=== PATIENT | female | born 1935 | race Caucasian/White ===

== ENCOUNTER 2019-06-04 05:22 | Emergency (ER) | payer MEDICARE ==
[~2019-06-04] VITALS: Ht 152.4 cm; Wt 50.8 kg
[~2019-06-04 05:22] MED LIST: ALBU.083IS IH; CLOP75 PO; FURO40 PO; OMEP10ER PO; ONDA4ODT MM; POTCHL20ER PO; PROACE100 PO
[2019-06-04] MEDS ORDERED: Carvedilol12.5 MG (05:45)
[2019-06-04] MEDS ORDERED: SPIR25 (05:46)
[2019-06-04] MEDS ORDERED: Prinivil10 MG (05:46)
[2019-06-04] MEDS ORDERED: LINZESS145 MCG (05:47)
[2019-06-04] MEDS ORDERED: ATOR40TA (05:47)
[2019-06-04 07:18] LABS: BASOPHILS ABSOLUTE AUTO 0.06 K/mm3 (0.00-0.23); BASOPHILS PERCENT AUTO 0 % (0-2); EOSINOPHILS ABSOLUTE AUTO 0.02 K/mm3 (0.00-0.68); EOSINOPHILS PERCENT AUTO 0 % (0-6); Hemoglobin 11.8 g/dL (11.5-16.0); IMMATURE GRAN ABSOLUTE AUTO 0.05 K/mm3 (0.00-0.10); IMMATURE GRAN PERCENT AUTO 0 % (0-1); LYMPHOCYTES PERCENT AUTO 8 % (21-46); MONOCYTES ABSOLUTE AUTO 1.05 K/mm3 (0.16-1.47); MONOCYTES PERCENT AUTO 7 % (4-13); Mean Corpuscular HGB 32.9 pg (26.0-34.0); Mean Corpuscular HGB Conc 34.7 g/dL (31.5-36.5); Mean Corpuscular Volume 95 fL (80-100); Mean Platelet Volume 10.8 fL (9.1-12.4); NEUTROPHILS ABSOLUTE AUTO 12.21 K/mm3 (1.96-9.15); NEUTROPHILS PERCENT AUTO 84 % (41-73); Platelet Count 251 K/mm3 (150-400); RDW Coefficient Variation 11.9 % (11.7-14.2); RDW Standard Deviation 41.1 fL (35.1-46.3); Red Blood Cell Count 3.59 M/mm3 (3.80-5.20); White Blood Cell Count 14.49 K/mm3 (4.00-11.30)
[2019-06-04 07:28] LABS: Source, Urine Clean Catch
[2019-06-04 07:41] LABS: Alanine Aminotransfer (ALT/SGP 20 U/L (12-78); Albumin, Blood 3.5 g/dL (3.4-5.0); Albumin/Globulin Ratio 0.9 (0.8-1.8); Alk Phos 90 U/L (50-136); Anion Gap 10 mmol/L (6-16); Aspartate Aminotrans (AST/SGOT 17 U/L (12-37); Bilirubin, Total 0.8 mg/dL (0.1-1.0); Blood Urea Nitrogen 21 mg/dL (8-24); Bun/Creatinine Ratio 22.6 (12.0-20.0); CO2, Blood 24 mmol/L (21-32); Chloride, Blood 93 mmol/L (98-108); Creatinine, Blood 0.93 mg/dL (0.40-1.00); Globulin, Blood 3.9 g/dL (2.2-4.0); Glomerular Filtration Rate >60 (60-); Glucose, Blood 109 mg/dL (70-99); Potassium, Blood 4.3 mmol/L (3.5-5.5); Sodium, Blood 127 mmol/L (136-145); Total Protein, Blood 7.4 g/dL (6.4-8.2)
[2019-06-04 07:46] LABS: Bilirubin, Urine Neg (Neg); Blood, Urine Neg (Neg); Glucose Qualitative, Urine Neg (Neg); Ketones, Urine 3+ (Neg); Leukocyte Esterase, Urine 2+ (Neg); Nitrite, Urine Pos (Neg); Protein, Urine Neg (Neg); Specific Gravity, Urine 1.015 (1.003-1.022); Urobilinogen, Urine 1+ (Normal)
[2019-06-04 08:05] LABS: Appearance, Urine Hazy (Clear); Color, Urine Yellow (P-Yellow)
[2019-06-04 08:08] LABS: Bacteria Few /hpf; Red Blood Cells, Urine 0-2 /hpf (0-2); Squamous Epithelial Cells Few /hpf (Few)
[2019-06-04] MEDS ORDERED: CITRATE OF MAG296 ML PO (09:23)
[2019-06-04] MEDS ORDERED: BISA5EC PO (09:23)
== END 2019-06-04 09:32 | disposition home or self-care (01) ==
LOC: ER 05:22
PROVIDERS: Emergency Medicine
DX: K59.00 Constipation, unspecified (principal); Z95.1 Presence of aortocoronary bypass graft; Z95.2 Presence of prosthetic heart valve; Z88.2 Allergy status to sulfonamides; Z88.5 Allergy status to narcotic agent
CPT/HCPCS: 36415; 74177; 80053; 81001; 83690; 85025; 87077; 87086; 87186; 96361-59; 96374-59; 96375-59; 99284-25; J2405; J3010; J7120; Q9967